=== PATIENT | female | born 1940 | race Asian ===

== ENCOUNTER 2017-06-04 12:39 | Emergency (ER) | payer MEDICARE ==
[~2017-06-04] VITALS: Ht 157.5 cm; Wt 70.3 kg
[2017-06-04 12:40] VITALS: BP_SYST 155
--- NOTE | 2017-06-04 12:45 | NUR ---
TRIAGED AND BROUGHT BACK TO BED #7, REPORT GIVEN TO DEWEY
--- NOTE | 2017-06-04 12:48 | NUR ---
BILATERAL HANDS EMERGED IN COLD WATER, DAUGHTER AT BEDSIDE FOR SUPPORT.
--- NOTE | 2017-06-04 13:01 | NUR ---
Pt complains of pain to bilateral hands, pt states was taking out a cup of noodles from the microwave and spilled some on her and then squeezed the cup. Redness to fingers and hands. Pt has hands soaking in cold water at bedside. No other injuries/complaints per pt or noted.
--- NOTE | 2017-06-04 13:07 | NUR ---
ER JAMES Davison at bedside examining patient.
[2017-06-04] MEDS: OXYCODONE/ACETAMINOPHEN 5-325 TABLET PO ONE ×2 (13:26→13:46)
--- NOTE | 2017-06-04 13:28 | NUR ---
Pt refused pain medication, states she has not eaten and will take pain medication at home.
[2017-06-04] MEDS ORDERED: BACITRACIN 1 GM OINT TP ONE ×2 (13:33→13:45)
--- NOTE | 2017-06-04 13:35 | NUR ---
Pt was given some food, wants the pain medication. Will wait a couple minutes and then give pain medication
--- NOTE | 2017-06-04 13:45 | NUR ---
Pain medication was given and wound care is being performed at this time, pt tolerating it well. No noted adverse reaction, will continue to monitor.
[2017-06-04 13:57] VITALS: BP_SYST 150
--- NOTE | 2017-06-04 13:57 | NUR ---
Patient given written and verbal discharge instructions and verbalizes understanding. ER MD discussed with patient the results and treatment provided. Patient in stable condition. ID arm band removed. Rx of tylenol extra strength and bacitracin given. Patient educated on pain management and to follow up with PMD. Pain Scale 3. Laney [employer] aware, pain medication was given here and prescription for home, pt states will take at home. Opportunity for questions provided and answered.
== END 2017-06-04 13:57 | disposition home or self-care (01) ==
LOC: SED 12:39
DX: T23.101A Burn of first degree of right hand, unspecified site, initial encounter (principal); T23.102A Burn of first degree of left hand, unspecified site, initial encounter; I10 Essential (primary) hypertension; J45.909 Unspecified asthma, uncomplicated; Z88.0 Allergy status to penicillin; X19.XXXA Contact with other heat and hot substances, initial encounter; Y93.89 Activity, other specified; Y92.89 Other specified places as the place of occurrence of the external cause; Y99.8 Other external cause status
CPT/HCPCS: 99284

== ENCOUNTER 2017-06-05 12:18 | Emergency (ER) | payer MEDICARE ==
[~2017-06-05] VITALS: Ht 157.5 cm; Wt 70.3 kg
[2017-06-05 12:23] VITALS: BP_SYST 159
[2017-06-05 13:25] VITALS: BP_SYST 120
== END 2017-06-05 13:25 | disposition home or self-care (01) ==
LOC: SED 12:18
DX: T23.102D Burn of first degree of left hand, unspecified site, subsequent encounter (principal); J45.909 Unspecified asthma, uncomplicated; I10 Essential (primary) hypertension; Z85.3 Personal history of malignant neoplasm of breast; Z88.0 Allergy status to penicillin; X19.XXXD Contact with other heat and hot substances, subsequent encounter
CPT/HCPCS: 99283